=== PATIENT | female | born 1995 | race Caucasian/White ===

== ENCOUNTER 2016-07-29 10:03 | Emergency (ER) | payer OTHER ==
[~2016-07-29] VITALS: Ht 167.6 cm; Wt 63.5 kg
[2016-07-29 10:10] VITALS: BP 107/56
[2016-07-29] MEDS ORDERED: TRAMADOL HCL 50 MG TABLET PO ONE (11:00)
[2016-07-29] MEDS ORDERED: ONDANSETRON 4 MG TAB.RAPDIS SL ONE (11:00)
[2016-07-29] MEDS ORDERED: TRAMADOL HCL 50 MG TABLET ONE (11:10)
[2016-07-29] MEDS ORDERED: ONDANSETRON 4 MG TAB.RAPDIS ONE (11:10)
== END 2016-07-29 11:17 | disposition home or self-care (01) ==
LOC: ER 10:08
DX: S09.90XA Unspecified injury of head, initial encounter (principal); H53.8 Other visual disturbances; F17.200 Nicotine dependence, unspecified, uncomplicated; W22.8XXA Striking against or struck by other objects, initial encounter; Y93.89 Activity, other specified; Y92.9 Unspecified place or not applicable; Y99.9 Unspecified external cause status
CPT/HCPCS: 99283; A4606; Q0162; Z7610

== ENCOUNTER 2020-02-10 14:47 | Emergency (ER) | payer BC, OTHER ==
[~2020-02-10] VITALS: Ht 170.2 cm; Wt 61.7 kg
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
--- NOTE | 2020-02-10 16:26 | NUR ---
Patient discharged to home in stable condition. Written and verbal after care instructions given. Patient verbalizes understanding of instruction.
[2020-02-10 16:27] VITALS: BP 118/74
== END 2020-02-10 16:27 | disposition home or self-care (01) ==
LOC: ER 14:55
DX: S06.0X0A Concussion without loss of consciousness, initial encounter (principal); S13.4XXA Sprain of ligaments of cervical spine, initial encounter; R42 Dizziness and giddiness; F32.9 Major depressive disorder, single episode, unspecified; F41.9 Anxiety disorder, unspecified; F17.200 Nicotine dependence, unspecified, uncomplicated; V49.59XA Passenger injured in collision with other motor vehicles in traffic accident, initial encounter; Y93.89 Activity, other specified; Y92.413 State road as the place of occurrence of the external cause; Y99.8 Other external cause status
CPT/HCPCS: 70450; 72125; 99285; A4349